=== PATIENT | female | born 1990 | race Caucasian/White ===

== ENCOUNTER 2023-08-06 05:23 | Emergency (ER) | payer OTHER, SELFPAY ==
[2023-08-06 05:31] VITALS: BP 136/89
[2023-08-06] MEDS: ZOFRAN ODT (ORALLY DISINTEGRATING) 4 MG PO (05:38)
[2023-08-06 07:27] VITALS: BMI 29.4
[2023-08-06 07:50] LABS: Urine Albumin Negative (Neg - Trace); Urine Bilirubin 1+ (Negative); Urine Character Clear (Clear); Urine Color Yellow; Urine Glucose Negative (Negative); Urine Ketone Negative (Negative); Urine Leukocyte Trace (Negative); Urine Nitrite Negative (Negative); Urine Occult Blood 4+ (Negative); Urine Urobilinogen Negative (Neg - 1+)
--- NOTE | 2023-08-06 07:51 | ED.GENMED ---
History of Present Illness
General
Chief Complaint: Flank Pain
Source: patient
Exam Limitations: none
Time Seen by Provider: 08/06/23 07:28
Nursing documentation reviewed up to this point in time: agreed with
Travel History
Have you had any contact with someone who has COVID-19?: No
Do you have any symptoms of coronavirus? Fever > 100 degrees, chills, cough, shortness of breath, sore throat, loss of taste or smell, muscle aches, or headache?: No
History of Present Illness
History of Present Illness:
Patient is a 33 old female with history of renal colic, hyperoxaluria, bipolar disorder borderline personality or asthma presents to the ED with complaints of right flank pain. She reports this started 2 days ago however this morning she was not
able to urinate which the prompted her to come to the ER .
She has been nauseous denies any fevers. Denies any vomiting. She is on chronic Macrobid. She is followed by urologist at [facility].
Past History
Past History
ED Past Medical History: Arrthythmia (Bradycardia), Asthma (Seasonal), Psychiatric and Other (Kidney stones, Pyelonephritis)
ED Past Surgical History: Cholecystectomy, Gynecological (Ectopic right with tubal removal) and Urological (Lithotripsy)
Social History
Tobacco: Non-smoker
Alcohol: Occasional
Drug: None
Personal:
Living: with family
Employment: Not employed
Family History
Family History: Other
Review of Systems
Review of Systems
Allergies reviewed?: Yes
All Other Systems: ROS reviewed and negative except as documented in HPI and ROS
Constitutional: Reports no symptoms; Denies fever, fatigue or chills
EENT: Reports no symptoms
Respiratory: Reports no symptoms
Cardiac: Reports no symptoms
ABD/GI: Reports nausea; Denies vomiting
: Reports flank pain (right sided flank pain ) and difficulty voiding
Skin: Reports no symptoms
Neurological: Reports no symptoms
Psychiatric: Reports no symptoms
Phy Exam
General Physical Exam
General Presentation: no apparent distress
General age: appears stated age
General Skin: warm and dry
General Habitus: normal
General Mental: alert
Gastrointestinal Exam
Gastrointestinal Exam: non tender and soft
Neurological Exam
Neurological Exam: alert and oriented x3
Musculoskeletal Exam
Musculoskeletal Exam: full ROM
Skin Exam
Skin Exam: normal color and warm/dry
Psychiatric Exam
Psychiatric Exam: normal mood/affect
Course
Orders/Labs/Results
Orders:
Orders
08/06/23 05:37
Ondansetron Orally Disint [Zofran Odt (Orally Disintegrating)] 4 mg .ROUTE .STK-MED ONE
Ondansetron Orally Disint [Zofran Odt (Orally Disintegrating)] 4 mg PO NOW STA
08/06/23 07:24
Test Result ONCE
08/06/23 07:33
Complete Blood Count/With Diff Urgent
Comprehensive Metabolic Panel Urgent
HCG, Serum Qualitative Screen Urgent
Urinalysis Reflex To Culture Urgent
Date Specimen was Collected: 08/06/23
Time Specimen was Collected: 07:28
Urine Microscopic Reflex Cult Urgent
Urine Culture Urgent
JASPREET Source: U
Specimen Description:
Date Specimen was Collected: 08/06/23
Time Specimen was Collected: 07:28
08/06/23 07:57
IV Insert/Care/Rem.- Treatment PRN
0.9% Sodium Chloride 1000 ml [Nss] 1,000 ml IV BOLUS
Ketorolac [Toradol] 15 mg IV NOW STA
Renal & Bladder US [US Renal With Bladder] Urgent
Comment:
Reason For Exam: right flank pain
08/06/23 08:44
Abdomen Xray - 1 View [CR Abdomen - 1 View] Urgent
Comment:
Reason For Exam: right flank pain questionable stone
Abnormal Lab Results
08/06/23
07:33
WBC 3.5 L 10^3/uL
(4.8-10.8)
MPV 11.1 H fL
(7.4-10.4)
Absolute Lymphs (auto) 1.0 L 10^3/uL
(1.2-3.4)
Chloride 108 H mmol/L
(98-107)
Glucose 104 H mg/dl
(70-99)
Ur Occult Blood Reflex 4+ A
(Negative)
Urine Bilirubin 1+ A
(Negative)
Leukocyte Esterase Rfl Trace A
(Negative)
Urine RBC 7-10 A /HPF
(0-2)
Urine Bacteria (Reflex) Moderate A
(Negative)
08/06/23 07:33
08/06/23 07:33
Vital Signs
Initial and Last Documented VS:
Initial Vital Signs
Temp Pulse Resp BP Pulse Ox
97.6 F 105 18 136/89 99
08/06/23 05:31 08/06/23 05:31 08/06/23 05:31 08/06/23 05:31 08/06/23 05:31
Last Documented Vital Signs
Temp Pulse Resp BP Pulse Ox
97.6 F 105 18 136/89 99
08/06/23 05:31 08/06/23 05:31 08/06/23 05:31 08/06/23 05:31 08/06/23 05:31
Skin Care Therapist consulted with Physician
Skin Care Therapist consulted with physician?: Yes
Name of Physician Consulted: Candi
MDM/Problems Addressed
Differential Diagnosis Includes:
Not limited to renal colic, pyelonephritis, UTI
MDM/Problems Addressed:
Patient is a 33-year-old female with history of renal colic chronic kidney stones, hyperoxaluria , anxiety presents with right flank pain. Patient had initial difficulty at home producing urine stream. Patient presents awake alert no acute
distress mild right flank pain denies any fever chills nausea vomiting.
Patient with recent CAT scan in March 2023 therefore renal ultrasound and x-ray was performed today which is negative for stone, negative for hydro. Patient denies any fevers and is afebrile here normal renal function/
Will send urine for culture. There is 7�10 RBCs 6�10 white blood cells but 1115 squamous cells. No obvious stone or hydro patient stable for discharge home with follow-up by her urologist. She has a urologist appointment tomorrow. d/c w/ ED
physician.
Chronic conditions affecting care:
Chronic renal colic
*Radiology
Radiology exam reviewed: radiology read reviewed (Renal bladder ultrasound shows mild urinary retention otherwise unremarkable ultrasound, no hydro nothing to suggest renal calculi; x-ray negative for acute findings)
*Critical Care Note
Total Time (30-74mins, 75-104mins- exclusive of procedures): Not Applicable
ED Attending Note
-
Portions of this chart may have been created with voice recognition software.� Occasional wrong word or��sound alike� substitutions may have occurred due to the inherent limitations of voice recognition software.
Discharge Plan
Departure
Patient Disposition: Home (Routine Discharge)
Date of Disposition: 08/06/23
Time of Disposition: 11:32
Patient with high blood pressure during this ER visit?: Yes
Condition: Fair
Covid-19: Not Applicable
Discharge Problem:
right flank pain
Instructions: Flank Pain (DC), BLOOD PRESSURE
Prescriptions:
No Action
prazosin [Minipress] 5 MG capsule
5 mg PO HS
Nurtec ODT 75 MG tablet,disintegrating
75 mg PO PRN PRN (Reason: MIGRAINES)
albuterol sulfate [ProAir HFA] 1 PUFF HFA aerosol inhaler
1 puff inhalation R Q4 PRN (Reason: sob)
ibuprofen 800 mg tablet
800 mg PO Q6H PRN (Reason: flank/ mod pain)
Rx Instructions:
As needed for flank pain
quetiapine [Seroquel] 100 mg tablet
500 mg PO HS
topiramate [Topamax] 25 mg Tablet
25 mg PO BID
nortriptyline 10 mg Capsule
10 mg PO DAILY
lorazepam [Ativan] 1 mg Tablet
1 mg PO .Q 4 TO 6 HR PRN (Reason: anxiety)
nortriptyline 50 mg Capsule
50 mg PO HS
Referrals:
Milli Sena MD [Family Provider] -
Activity Restrictions/Additional Instructions:
Follow-up with your urologist as scheduled tomorrow. Return if any worsening of symptoms. Stay well hydrated.
Interventions
Interventions:
*Risk Screen - Suicide Last Done: 08/06/23 05:31
*General Assessment Last Done: 08/06/23 05:31
*Neglect/Abuse Screening Last Done: 08/06/23 05:31
ED- Fall Risk Assessment Last Done: 08/06/23 07:27
*ED COVID-19 Vaccine History Last Done: 08/06/23 05:31
IQ-Knwpbd-Jfpvnkkmqb Assessment Last Done: 08/06/23 07:27
ED-Female Genitourinary Assessment Last Done: 08/06/23 07:27
[2023-08-06 07:53] LABS: % Basophils 0.6 % (0-2); % Immature Granulocytes 0.3 % (0-0.5); % Monocytes 7.2 % (1.7-9.3); % Neutrophils 62.9 % (42.2-75.2); Absolute Monocytes 0.3 10^3/uL (0.1-0.6); Absolute Neutrophils 2.2 10^3/uL (1.4-6.5); Hematocrit 42.9 % (37.0-47.0); Hemoglobin 14.2 g/dL (12.0-16.0); Mean Corp Hgb Conc. 33.1 g/dL (33.0-37.0); Mean Corpuscular Hgb 29.2 pg (27.0-31.0); Mean Corpuscular Volume 88.3 fL (81.0-99.0); Mean Platelet Volume 11.1 fL (7.4-10.4); Nucleated Red Blood Cells % 0 %; Platelet Count 172 10^3/uL (130-400); Red Blood Cell Count 4.86 10^6/uL (4.20-5.40); Red Cell Dist. Width 13.1 % (11.5-14.5); White Blood Cell Count 3.5 10^3/uL (4.8-10.8)
[2023-08-06 08:03] LABS: HCG, Serum Qualitative Screen Negative
[2023-08-06] MEDS: TORADOL 15 MG IV (08:05)
[2023-08-06] MEDS: NSS 1000 IV (08:05)
[2023-08-06 08:16] LABS: ALT (SGPT) 19 U/L (0-35); AST (SGOT) 23 U/L (14-36); Albumin 4.2 g/dl (3.5-5.0); Alkaline Phosphatase 92 U/L (38-126); Blood Urea Nitrogen 16 mg/dl (7-17); Calcium 9.1 mg/dl (8.4-10.2); Carbon Dioxide 25 mmol/L (22-30); Chloride 108 mmol/L (98-107); Estimated Creatinine Clearance 80 ml/min; Glucose 104 mg/dl (70-99); Potassium 3.9 mmol/L (3.5-5.1); Sodium 138 mmol/L (135-145); Total Bilirubin 0.4 mg/dl (0.2-1.3); Total Protein 6.6 g/dl (6.3-8.2); Urine Bacteria Moderate (Negative); Urine Mucus Few; eGFR > 60.00
[2023-08-06 11:35] VITALS: BP 132/78
== END 2023-08-06 11:48 | disposition home or self-care (01) ==
LOC: EMR 05:23
PROVIDERS: Emergency Medicine; Nurse Practitioner; EMERGENCY PHYSICIAN Emergency Medicine; FAMILY PHYSICIAN Family Medicine
DX: R10.9 Unspecified abdominal pain (principal); R82.992 Hyperoxaluria; F31.9 Bipolar disorder, unspecified; F41.9 Anxiety disorder, unspecified; J45.909 Unspecified asthma, uncomplicated; Z87.442 Personal history of urinary calculi; Z87.59 Personal history of other complications of pregnancy, childbirth and the puerperium; Z90.49 Acquired absence of other specified parts of digestive tract
CPT/HCPCS: 99284; 96374; 96361; 74018; 76770; 80053; 81003; 81015; 84703; 85025; 87086